=== PATIENT | male | born 1945 | race Caucasian/White ===

== ENCOUNTER 2020-01-14 09:31 | Inpatient (IN) ==
[2020-01-14] MEDS ORDERED: *HR* Heparin 5,000 UNIT/ML VIAL IVP PRN ×2 (14:49)
[2020-01-14] MEDS ORDERED: Naloxone 0.4 MG/ML INJ IVP PRN (14:56)
[2020-01-14] MEDS ORDERED: Ipratropium/Albuterol Neb 3 ML IH PRN (15:05)
[2020-01-14] MEDS: Heparin 25,000UNIT/250ML 1/2NS 25,000 UNIT/250 ML IV.SOLN IVC SCH (15:26)
[2020-01-14 16:53] LABS: Heparin anti-factor XA UFH 0.41 IU/mL (0.30-0.70); INR 1.1; Prothrombin Time 13.1 Seconds (9.4-12.1)
[2020-01-14] MEDS: Furosemide 40 MG/4 ML VIAL IVP SCH (20:09)
[2020-01-14] MEDS: BuPROPion SR (12 HR) 150 MG TABLET PO SCH (20:09)
[2020-01-14] MEDS: predniSONE 20 MG TABLET PO SCH (20:09)
[2020-01-14] MEDS: Budesonide/Formoterol 160/4.5 1 PUFF INH IH SCH (20:28)
[2020-01-15 04:32] LABS: Basophils % 0.2 %; Eosinophils % 0.2 %; Hemoglobin 14.5 g/dL (12.9-16.9); Immature Granulocytes % 0.7 % (0-4); Lymphocytes % 10.5 %; Mean Corpuscular Hemoglobin 31.5 pg (28.0-33.3); Mean Corpuscular Volume 95.4 fL (83.0-100.0); Mean Platelet Volume 11.3 fL (9.4-12.4); Monocytes # 0.5 K/mcL (0.0-1.3); Neutrophils # 7.8 K/mcL (1.6-8.9); Platelet Count 158 K/mcL (140-400); Red Blood Count 4.61 M/mcL (4.19-5.50); Red Cell Distribution Width 14.3 % (11.5-14.5); Segmented Neutrophils % 83.4 %; White Blood Count 9.4 K/mcL (4.3-11.1)
[2020-01-15 04:43] LABS: Calcium 9.1 mg/dL (8.6-10.3); Potassium 4.2 mEq/L (3.5-5.1)
[2020-01-15 07:51] LABS: Estimated Average Glucose 143 mg/dl
[2020-01-15] MEDS: Budesonide/Formoterol 160/4.5 1 PUFF INH IH SCH ×2 (07:58→22:44)
[2020-01-15] MEDS: Aspirin Enteric Coated 81 MG Tablet PO SCH (08:41)
[2020-01-15] MEDS: BuPROPion SR (12 HR) 150 MG TABLET PO SCH ×2 (08:41→20:07)
[2020-01-15] MEDS: Furosemide 40 MG/4 ML VIAL IVP SCH ×2 (08:42→16:34)
[2020-01-15] MEDS: predniSONE 20 MG TABLET PO SCH (10:54)
[2020-01-15] MEDS: Heparin 25,000UNIT/250ML 1/2NS 25,000 UNIT/250 ML IV.SOLN IVC SCH (12:45)
[2020-01-16 05:08] LABS: Hemoglobin 14.9 g/dL (12.9-16.9); Mean Corpuscular HGB Conc 33.1 g/dL (31.6-35.5); Mean Corpuscular Hemoglobin 31.4 pg (28.0-33.3); Mean Corpuscular Volume 94.7 fL (83.0-100.0); Mean Platelet Volume 10.9 fL (9.4-12.4); Platelet Count 171 K/mcL (140-400); Red Blood Count 4.75 M/mcL (4.19-5.50); Red Cell Distribution Width 14.3 % (11.5-14.5); White Blood Count 11.1 K/mcL (4.3-11.1)
[2020-01-16 05:27] LABS: Calcium 9.3 mg/dL (8.6-10.3); Potassium 3.6 mEq/L (3.5-5.1)
[2020-01-16] MEDS ORDERED: Regadenoson 0.4 MG/5 ML SYRINGE IVP ONE (06:22)
[2020-01-16] MEDS: Aspirin Enteric Coated 81 MG Tablet PO SCH (09:58)
[2020-01-16] MEDS: predniSONE 20 MG TABLET PO SCH (09:58)
[2020-01-16] MEDS: lisinopriL 5 MG TABLET PO SCH (09:58)
[2020-01-16] MEDS: BuPROPion SR (12 HR) 150 MG TABLET PO SCH ×2 (09:59→21:01)
[2020-01-16] MEDS: Metoprolol XL (24 HR) Succ 25 MG TAB.ER.24H PO SCH (09:59)
[2020-01-16] MEDS: Furosemide 40 MG/4 ML VIAL IVP SCH (10:00)
[2020-01-16] MEDS: Budesonide/Formoterol 160/4.5 1 PUFF INH IH SCH ×2 (11:01→22:01)
[2020-01-16] MEDS ORDERED: Furosemide 40 MG TABLET PO SCH (17:00)
[2020-01-17 08:20] LABS: Magnesium 2.3 mg/dL (1.6-2.6); Phosphorous 4.5 mg/dL (2.7-4.5)
[2020-01-17 08:33] LABS: Calcium 9.3 mg/dL (8.6-10.3); Potassium 3.9 mEq/L (3.5-5.1)
[2020-01-17] MEDS: Budesonide/Formoterol 160/4.5 1 PUFF INH IH SCH (08:35)
[2020-01-17] MEDS: lisinopriL 5 MG TABLET PO SCH (08:53)
[2020-01-17] MEDS: Metoprolol XL (24 HR) Succ 25 MG TAB.ER.24H PO SCH (08:54)
[2020-01-17] MEDS: Aspirin Enteric Coated 81 MG Tablet PO SCH (08:54)
[2020-01-17] MEDS: BuPROPion SR (12 HR) 150 MG TABLET PO SCH (08:54)
[2020-01-17] MEDS: predniSONE 20 MG TABLET PO SCH (08:54)
[2020-01-17] MEDS ORDERED: Furosemide 40 MG TABLET PO SCH (09:00)
[2020-01-17 11:14] VITALS: BP 107/96
== END 2020-01-17 13:15 | disposition home or self-care (01) | DRG 291 ==
LOC: 2NNU → SUATTDRO 01-15 15:58
PROVIDERS: ADMIT Internal Medicine; ATTEND Internal Medicine

== ENCOUNTER 2021-10-27 06:28 | Inpatient (IN) ==
[2021-10-27] MEDS ORDERED: Heparin 1,000 UNITS/500 mL 2,500 ML ONE (07:01)
[2021-10-27] MEDS ORDERED: Iopamidol - 300 100 ML INFUS..BTL ONE (07:02)
[2021-10-27] MEDS ORDERED: Protamine Sulfate 50 MG/5 ML VIAL IVP ONE (07:02)
[2021-10-27] MEDS ORDERED: DOBUTamine 0 MG/0 ML BAG ONE (07:18)
[2021-10-27] MEDS ORDERED: *HR* Norepinephrine 4 MG/4 ML VIAL IVC ONE (07:18)
[2021-10-27] MEDS ORDERED: niCARdipine 20 MG/200 ML MLS IVC ONE (07:20)
[2021-10-27] MEDS ORDERED: *HR* DOBUTamine HCl 250 MG/20 ML VIAL ONE (07:21)
[2021-10-27] MEDS ORDERED: Heparin 1,000 UNITS/500 mL 0 ML ONE (07:30)
[2021-10-27] MEDS ORDERED: Lidocaine -MPF 2% 5 ML VIAL ONE (07:41)
[2021-10-27] MEDS ORDERED: *HR* Rocuronium Bromide 50 MG/5 ML VIAL ONE ×2 (07:41→10:46)
[2021-10-27] MEDS ORDERED: *HR* Succinylcholine 200 MG/10 ML VIAL IVP ONE (07:41)
[2021-10-27] MEDS ORDERED: *HR* FentaNYL (PF) 100 MCG/2 ML VIAL ONE ×2 (07:41→09:36)
[2021-10-27] MEDS ORDERED: *HR* Heparin 5,000 UNIT/ML VIAL ONE ×3 (07:41→11:10)
[2021-10-27] MEDS ORDERED: Ondansetron 4 MG/2 ML VIAL ONE (07:41)
[2021-10-27] MEDS ORDERED: Lidocaine -MPF 4% 5 ML AMPUL ONE (07:41)
[2021-10-27] MEDS ORDERED: *HR* Phenylephrine 10 MG/ML VIAL ONE (07:41)
[2021-10-27] MEDS ORDERED: *HR* Midazolam HCl 2 MG/2 ML VIAL ONE (07:42)
[2021-10-27] MEDS ORDERED: *HR* Propofol 200 MG/20 ML VIAL IVP ONE (07:42)
[2021-10-27] MEDS ORDERED: ceFAZolin 1,000 MG, Sodium Chloride IRRigation 1,000 ML IR ONE (07:45)
[2021-10-27] MEDS ORDERED: CeFAZolin Syr 2,000MG/20 ML 2,000 MG/20 ML SYRINGE IVPB ONE (07:52)
[2021-10-27] MEDS ORDERED: Ringers Solution, Lactated 1,000 ML IVC SCH (08:00)
[2021-10-27] MEDS ORDERED: Albumin Human 5% 25.0 GM/500 ML IV.SOLN ONE (08:09)
[2021-10-27 09:04] LABS: ABG Base Excess -3 mEq/L (-2 to 3); ABG Chloride 108 mEq/L (98-107); ABG Glucose 97 mg/dL (60-95); ABG HCO3 23 mEq/L (21-27); ABG Ionized Calcium 1.09 mmol/L (1.15-1.35); ABG Oxygen Saturation 100 % (95-98); ABG PCO2 42 mmHg (35-45); ABG PH 7.35 pH Units (7.32-7.45); ABG PO2 225 mmHg (85-104); ABG TCO2 24 mEq/L (20-26)
[2021-10-27 11:39] LABS: ABG Base Excess -3 mEq/L (-2 to 3); ABG Chloride 106 mEq/L (98-107); ABG Glucose 114 mg/dL (60-95); ABG HCO3 22 mEq/L (21-27); ABG Ionized Calcium 1.03 mmol/L (1.15-1.35); ABG Oxygen Saturation 100 % (95-98); ABG PCO2 36 mmHg (35-45); ABG PH 7.39 pH Units (7.32-7.45); ABG PO2 198 mmHg (85-104); ABG TCO2 23 mEq/L (20-26)
[2021-10-27] MEDS ORDERED: Ondansetron 4 MG/2 ML VIAL IVP PRN ×2 (12:24→18:06)
[2021-10-27] MEDS ORDERED: *HR* Metoprolol 5 MG/5 ML VIAL IVP PRN (12:24)
[2021-10-27] MEDS ORDERED: Sugammadex Sodium 200 MG/2 ML VIAL IV ONE (12:43)
[2021-10-27] MEDS ORDERED: *HR* HYDROMORPHONE 2 MG/ML VIAL ONE (12:47)
[2021-10-27 13:58] LABS: Basophils % 0.3 %; Eosinophils % 0.4 %; Hemoglobin 11.1 g/dL (12.9-16.9); Lymphocytes # 0.5 K/mcL (0.6-4.6); Lymphocytes % 4.7 %; Mean Corpuscular HGB Conc 32.6 g/dL (31.6-35.5); Mean Corpuscular Hemoglobin 30.9 pg (28.0-33.3); Mean Corpuscular Volume 94.7 fL (83.0-100.0); Mean Platelet Volume 10.3 fL (9.4-12.4); Monocytes # 0.2 K/mcL (0.0-1.3); Monocytes % 1.9 %; Platelet Count 164 K/mcL (140-400); Red Blood Count 3.59 M/mcL (4.19-5.50); Red Cell Distribution Width 14.1 % (11.5-14.5); Segmented Neutrophils % 91.7 %; White Blood Count 9.8 K/mcL (4.3-11.1)
[2021-10-27 14:17] LABS: Calcium 7.5 mg/dL (8.6-10.3); Potassium 4.3 mEq/L (3.5-5.1)
[2021-10-27] MEDS ORDERED: EPHEDrine 50 MG/ML VIAL ONE (14:24)
[2021-10-27] MEDS ORDERED: *HR* HYDROcodone/Acet 5/325 mg TABLET PO PRN (18:06)
[2021-10-27] MEDS ORDERED: *HR* OxyCODONE Immed Rel 5 MG TABLET PO PRN (18:06)
[2021-10-27] MEDS ORDERED: Acetaminophen 325 MG TABLET PO PRN (18:06)
[2021-10-27] MEDS ORDERED: Naloxone 0.4 MG/ML INJ IVP PRN (18:06)
[2021-10-27] MEDS ORDERED: *HR* Labetalol 20 MG/4 ML SYRINGE IVP PRN (18:06)
[2021-10-27 20:11] LABS: Hemoglobin 10.1 g/dL (12.9-16.9)
[2021-10-27] MEDS: CeFAZolin 2,000 MG/120 ML BAG IVPB SCH (21:07)
[2021-10-28 04:13] LABS: Basophils % 0.2 %; Hematocrit 30.1 % (37.5-50.1); Hemoglobin 9.7 g/dL (12.9-16.9); Immature Granulocytes % 0.5 % (0-4); Lymphocytes # 0.6 K/mcL (0.6-4.6); Lymphocytes % 4.6 %; Mean Corpuscular HGB Conc 32.2 g/dL (31.6-35.5); Mean Corpuscular Hemoglobin 30.8 pg (28.0-33.3); Mean Corpuscular Volume 95.6 fL (83.0-100.0); Mean Platelet Volume 10.5 fL (9.4-12.4); Monocytes # 1.1 K/mcL (0.0-1.3); Monocytes % 8.6 %; Neutrophils # 10.9 K/mcL (1.6-8.9); Platelet Count 170 K/mcL (140-400); Red Blood Count 3.15 M/mcL (4.19-5.50); Red Cell Distribution Width 13.9 % (11.5-14.5); Segmented Neutrophils % 86.1 %; White Blood Count 12.6 K/mcL (4.3-11.1)
[2021-10-28 04:29] LABS: Calcium 7.8 mg/dL (8.6-10.3); Potassium 4.6 mEq/L (3.5-5.1)
[2021-10-28] MEDS: CeFAZolin 2,000 MG/120 ML BAG IVPB SCH ×2 (05:47→13:06)
[2021-10-28 08:31] VITALS: BP 147/75; PULSE 92; O2SAT 96
[2021-10-28] MEDS ORDERED: Cholecalciferol (D-3) 1,000 UNIT (25MCG) TABLET PO SCH (09:00)
[2021-10-28] MEDS ORDERED: calcitrioL 0.25 MCG CAPSULE PO SCH (09:00)
[2021-10-28] MEDS ORDERED: Dapagliflozin Propanediol [Farxiga] 10 MG Tablet PO SCH (09:00)
[2021-10-28] MEDS ORDERED: Aspirin Enteric Coated 81 MG Tablet PO SCH (09:00)
[2021-10-28] MEDS ORDERED: Spironolactone 12.5 MG TABLET PO SCH (09:00)
[2021-10-28] MEDS ORDERED: Cyanocobalamin (B-12) 1,000 MCG TABLET PO SCH (09:00)
[2021-10-28] MEDS ORDERED: Metoprolol XL (24 HR) Succ 25 MG TAB.ER.24H PO SCH (09:00)
[2021-10-28] MEDS ORDERED: Furosemide 40 MG TABLET PO SCH (09:00)
[2021-10-28 12:02] VITALS: TEMP 98.1
== END 2021-10-28 14:20 | disposition home or self-care (01) | DRG 269 ==
LOC: SAMDAY 06:28 → ICNU 07:23
PROVIDERS: ADMIT Surgery Vascular Surgery; ATTEND Surgery Vascular Surgery